=== PATIENT | male | born 1960 | race Caucasian/White ===

== ENCOUNTER 2016-05-28 08:42 | Emergency (ER) | payer OTHER ==
[~2016-05-28] VITALS: Ht 188 cm; Wt 145.0 kg
[~2016-05-28 08:42] MED LIST: LEVO125T11 PO
[2016-05-28 11:18] VITALS: BP 132/79
[2016-05-30 00:17] LABS: GC DNA N.A. AMPLIFY Negative (Negative)
== END 2016-05-28 11:43 | disposition home or self-care (01) ==
LOC: EMS 08:44
DX: Z20.2 Contact with and (suspected) exposure to infections with a predominantly sexual mode of transmission (principal); J40 Bronchitis, not specified as acute or chronic; E03.9 Hypothyroidism, unspecified; F17.210 Nicotine dependence, cigarettes, uncomplicated
CPT/HCPCS: 87491; 87591; 99284